=== PATIENT | male | born 1930 | race Caucasian/White ===

== ENCOUNTER 2017-07-02 09:51 | Inpatient (IN) | payer MEDICARE, OTHER ==
[2017-07-02] MEDS ORDERED: Aspirin Low Dose CHEW TAB* 81 MG ONE (10:26)
[2017-07-02] MEDS ORDERED: Nitroglycerin TAB 0.4 MG* 0.4 MG TAB ONE (10:26)
[2017-07-02] MEDS ORDERED: Aspirin Low Dose CHEW TAB* 81 MG PO ONE (10:26)
[2017-07-02] MEDS ORDERED: Nitroglycerin TAB 0.4 MG* 0.4 MG TAB SL ONE (10:27)
[2017-07-02 10:34] LABS: Hematocrit 45 % (42-52); Hemoglobin 15.2 g/dl (14.0-18.0); Mean Corpuscular HGB Conc 34 g/dl (31-36); Mean Corpuscular Hemoglobin 32 pg (27-31); Mean Corpuscular Volume 95 fL (80-94); Mean Platelet Volume 9 um3 (7.4-10.4); Red Cell Distribution Width 13 % (10.5-15); White Blood Count 5.9 10^3/ul (3.5-10.8)
[2017-07-02] MEDS ORDERED: Nitroglycerin 2% OINT* 1 GM PAK TOPICAL ONE (10:40)
[2017-07-02] MEDS ORDERED: Nitroglycerin 2% OINT* 1 GM PAK ONE (10:43)
[2017-07-02 10:45] LABS: Albumin 4.2 g/dL (3.2-5.2); BUN/Creatinine Ratio 14.4 (8-20); Calcium 9.5 mg/dL (8.6-10.3); EGFR African American 80.8 (>60); EGFR Non-African American 62.8 (>60); Globulin 3.3 g/dL (2-4); Magnesium 2.2 mg/dL (1.9-2.7); Potassium 4.4 mmol/L (3.5-5.0); Total Bilirubin 1.8 mg/dL (0.2-1.0); Total Protein 7.5 g/dL (6.4-8.9)
--- NOTE | 2017-07-02 10:51 | RAD ---
HISTORY: Chest pain COMPARISONS: April 14, 2010 VIEWS: 1: frontal portable view of the chest at 10:20 AM FINDINGS: LINES AND TUBES: None. CARDIOMEDIASTINAL SILHOUETTE: The cardiomediastinal silhouette is normal for portable technique. PLEURA: The costophrenic angles are sharp. No pleural abnormalities are noted. LUNG PARENCHYMA: The lungs are clear. ABDOMEN: The upper abdomen is clear. There is no subphrenic gas. BONES AND SOFT TISSUES: No bone or soft tissue abnormalities are noted. IMPRESSION: NO ACTIVE CARDIOPULMONARY DISEASE.
[2017-07-02 10:57] LABS: Troponin I 0.22 ng/mL (<0.04)
[2017-07-02] MEDS ORDERED: NS 0.9% 1000 ML*IV.FLUID IV ONE (11:12)
[2017-07-02] MEDS ORDERED: Heparin DRIP 25,000 UNITS(*) 25,000 UNITS/500 ML BAG IVPB SCH ×2 (11:30→12:15)
--- NOTE | 2017-07-02 11:36 | ED ---
Garth Edwards Angela, scribed for Dru Orellana MD on 07/02/17 at 1019 . HPI Chest Pain - HPI Summary HPI Summary: This pt is a 87 y/o male accompanied by his presenting to [facility] c/o left sided chest pain with radiation to left arm that started today at 0700. Pt rates his pain 4 out of 10 in severity. Pt denies SOB, light-headedness, dizziness, diaphoresis, nausea. He denies tobacco, alcohol, or drug use. PMHx: cardiac stent. Pt's corporate licensed broker is Dr. Hernandez. - History of Current Complaint Chief Complaint: EDChestPainROMI Time Seen by Provider: 07/02/17 10:13 Hx Obtained From: Patient, Family/Seafood Packer - Onset/Duration: Started Hours Ago Timing: Lasting Hours Pain Intensity: 4 Pain Scale Used: 0-10 Numeric Chest Pain Radiates: Yes Chest Pain Radiates To:: Arm - left Associated Signs and Symptoms: Positive: Chest Pain. Negative: Weakness, Dizziness, Shortness of Breath, Lightheadedness, Diaphoresis, Nausea - Allergy/Home Medications Allergies/Adverse Reactions: Allergies Allergy/AdvReac Type Severity Reaction Status Date / Time Morphine Allergy Rash Verified 07/02/17 10:30 Sulfa Antibiotics Allergy Rash Verified 07/02/17 10:30 IV DYE Allergy See Comment Uncoded 07/02/17 10:30 Home Medications: Home Medications Ascorbic Acid TAB* [Vitamin C TAB*] 500 mg PO BID 07/02/17 [History Confirmed 07/02/17] Coenzyme [id number] [Co Q-10 Plus] 1 cap PO BID 07/02/17 [History Confirmed 07/02/17] Cyanocobalamin [Vitamin B-12] 100 mcg PO DAILY 07/02/17 [History Confirmed 07/02] Dabigatran CAP(NF) [Pradaxa CAP(NF)] 150 mg PO BID 07/02/17 [History Confirmed 07/02/17] Glucosamine Sulfate 1,000 mg PO BID 07/02/17 [History Confirmed 07/02/17] Lisinopril TAB* [Prinivil TAB*] 10 mg PO QAM 07/02/17 [History Confirmed ] Misc Natural Products [Prostate] 1 cap PO BID 07/02/17 [History Confirmed ] Saw Bradley (Serenoa Repens) [Saw Bradley] 550 mg PO BID 07/02/17 [History Confirmed 07/02/17] Tamsulosin CAP* [Flomax CAP*] 0.4 mg PO DAILY 07/02/17 [History Confirmed ] Vitamin B Complex CAP* [B Complex CAP*] 1 cap PO DAILY 07/02/17 [History Confirmed 07/02/17] PMH/Surg Hx/FS Hx/Imm Hx Endocrine/Hematology History: Denies: Hx Diabetes, Hx Thyroid Disease Cardiovascular History: Reports: Hx Hypertension, Other Cardiovascular Problems/ Disorders - cardiac stent to LAD Respiratory History: Denies: Hx Asthma, Hx Chronic Obstructive Pulmonary Disease (COPD) GI History: Denies: Hx Ulcer - Surgical History Surgery Procedure, Year, and Place: bilat knee surgery Infectious Disease History: Denies: Hx Hepatitis, Hx Human Immunodeficiency Virus (HIV), Traveled Outside the [place] in Last 30 Days - Family History Known Family History: Negative: Cardiac Disease - Social History Alcohol Use: None Hx Substance Use: No Substance Use Type: Reports: None Hx Tobacco Use: No Smoking Status (MU): Never Smoked Tobacco Review of Systems Negative: Fever, Chills ENT: Negative Positive: Chest Pain - with radiation to left arm Negative: Shortness Of Breath, Cough Negative: Abdominal Pain Genitourinary: Negative Musculoskeletal: Negative Skin: Negative Neurological: Negative All Other Systems Reviewed And Are Negative: Yes Physical Exam Triage Information Reviewed: Yes Vital Signs On Initial Exam: Initial Vitals Temp Pulse Resp BP Pulse Ox 98.2 F 74 16 155/74 97 07/02/17 09:53 07/02/17 09:53 07/02/17 09:53 07/02/17 09:53 07/02/17 09:53 Vital Signs Reviewed: Yes Diagnostics - Vital Signs Vital Signs Temp Pulse Resp BP Pulse Ox 07/02/17 10:01 97.8 F 74 15 140/85 97 07/02/17 09:53 98.2 F 74 16 155/74 97 - Laboratory Result Diagrams: 07/02/17 10:20 07/02/17 10:20 Lab Statement: Any lab studies that have been ordered have been reviewed, and results considered in the medical decision making process. - Radiology Chest XR Xray Interpretation: No Acute Changes - IMPRESSION: No active cardiopulmonary disease. ED physician has reviewed this radiology report and agrees. Radiology Interpretation Completed By: Radiologist - EKG 1013 EKG Rhythm: Atrial Fibrillation EKG Interpretation: ST elevation at II, III, aVF, V6 but no recip changes. 1103 EKG Rhythm: Atrial Fibrillation EKG Interpretation: Minimal ST elevation at inferior leads Chest Pain Course/Dx - Course Course Of Treatment: 87 yr old male with chest pain , radiating down the arm, and EKG with St elevations inferior lat leads, but no recip changes. DW Dr Shoemaker at 1030. He asked me to call Dr Castellano directly. At 1120 I spoke with pharmacy, they took verbal orders for the heparin drip. 11:26 - I discussed with Dr. Brand, hospitalist, who will admit the pt. - Diagnoses Provider Diagnoses: Chest pain - Provider Notifications Discussed Care Of Patient With: Donnie Shoemaker - contacted Dr Shoemaker as I was asked to call Dr Castellano. Dr Castellano contacted Time Discussed With Above Provider: 10:30 - at 1037 am and he wants troponin, and he will see patient. Instructed by Provider To: Other - 11:20 - I spoke with pharmacy, they took verbal order for the heparin drip. 11:26 - I spoke with Dr. Brand, hospitalist , who will admit the pt. Discharge - Discharge Plan Condition: Good Disposition: ADMITTED TO [facility] Referrals: Jose Luis Hamilton MD [Primary Care Provider] - The documentation as recorded by the Garth holley Angela accurately reflects the service I personally performed and the decisions made by me, Dru Orellana MD.
[2017-07-02] MEDS ORDERED: Heparin VIAL(*) 5000 UNITS/ML VIAL (FIVE THOUSAND) IV PRN ×2 (11:37→12:15)
[2017-07-02] MEDS ORDERED: Heparin DRIP 25,000 UNITS(*) 25,000 UNITS/500 ML BAG ONE (11:39)
[2017-07-02] MEDS ORDERED: Heparin VIAL(*) 5000 UNITS/ML VIAL (FIVE THOUSAND) ONE (11:39)
[2017-07-02] MEDS ORDERED: Atorvastatin* 80 MG TAB PO ONE (12:02)
[2017-07-02] MEDS ORDERED: Ondansetron INJ* 2 MG/ML VIAL IV PRN (12:02)
[2017-07-02] MEDS ORDERED: Clopidogrel TAB* 300 MG PO ONE (12:02)
--- NOTE | 2017-07-02 12:09 | ECHO ---
Patient: TRACEY VALDOVINOS [facility] Rec#: [id number] : 1930 Date: 07/02/2017 Age: 87y Height: 173 cm / 68.1 in Weight: 77 kg / 169.7 lbs Sex: M BSA: 1.91 Room#: 19 Admit Date#: 07/02/2017 Type: Inpatient Referring: Keegan Castellano MD Reading: Keegan Castellano MD Statistical Machine Servicer: Liberty Guadarrama [facility] Transthoracic Echocardiogram Indication: CP BP: 121/48 HR: 70 Rhythm: NSR Findings History: To ED with CP. Limited echo to evaluate LV function. Technical Comments: The study quality is good. Completed at 1129. Left Ventricle: There is a focal wall motion abnormality present.There is subtle proximal inferior wall hypokinesis seen. There is normal left ventricular systolic function. The estimated ejection fraction is 55-60%. Mitral Valve: There is mild mitral regurgitation. Conclusions Limited study to assess LV systolic function in patient with abnormal troponin There is subtle proximal inferior wall hypokinesis seen. There is normal left ventricular systolic function. The estimated ejection fraction is 55-60%. There is mild mitral regurgitation.
[2017-07-02] MEDS ORDERED: predniSONE TAB* 10 MG PO ONE (12:10)
[2017-07-02] MEDS ORDERED: nitroGLYCERIN DRIP* 250 ML ONE (12:17)
[2017-07-02] MEDS ORDERED: nitroGLYCERIN DRIP* 25,000 MCG in PREMIX* 0 ML IV SCH (13:00)
[2017-07-02 14:35] LABS: Troponin I 0.17 ng/mL (<0.04)
--- NOTE | 2017-07-02 14:53 | CONS ---
CC: Jose Luis Hamilton MD * CARDIOLOGY CONSULTATION: DATE OF CONSULT: 07/02/17 REASON FOR CONSULT: Patient with chest discomfort, abnormal EKG raising question of possible acute coronary syndrome with known history of coronary artery disease. HISTORY OF PRESENT ILLNESS: The patient is a pleasant 87-year-old gentleman who has noted over the course of the past couple of weeks developing onset of upper left shoulder discomfort with radiation into the chest with an aching sensation when he overdoes it. If he stops what he is doing, it would go away. Today, he got up doing routine things around the house and developed recurrent symptoms. Because it was not going away, he went to the emergency room. In the emergency room, he was given nitroglycerin with significant improvement and eventually by the time I saw him, his chest discomfort was completely gone with minimal shoulder discomfort. His initial EKG had a question of mild J-point elevation in the inferior leads. There was no dramatic reciprocal changes, but very subtle ST segment depression in aVL. A repeat EKG showed some improvement of these findings. The patient is on Pradaxa for chronic atrial fibrillation and took his last dose this morning before coming to the emergency room. The patient's cardiac history dates back to 2009 when he presented to [facility] with an acute coronary syndrome and was transferred to [facility]. His cardiac catheterization had revealed an EF of 55% with preserved LV function with no focal wall motion abnormalities. His left main was okay. His left anterior descending artery had a severe 95% stenosis at the mid portion of the artery and the circumflex had a mild obstructive proximal disease. The right coronary artery was a small caliber nondominant vessel. He subsequently underwent stenting down in [facility] utilizing a 3.0 x 24 mm long [place] stent postdilated to 3.5 mm to 3.6 mm. Since that time to now, he has undergone a nuclear stress test most recently on 11/03/14 by his customer retention representative in [place] as a regadenoson study that showed no evidence of ischemia with an EF at rest of 58%, stress 78%. An echocardiogram done by the [facility] revealed an EF of 55% to 60% with no focal wall motion abnormalities seen. The left atrium was moderately dilated. The right atrium was moderately dilated. There was bnad-mq-djuiaula tricuspid regurgitation more consistent with perhaps mild. In the emergency room, his troponin was found to be 0.22 with total CPK 69, MB of 3.5, lactic acid was 3.0. PAST MEDICAL HISTORY: Also includes a history of benign prostatic hypertrophy as well as the coronary artery disease history. He has a history of atrial fibrillation which became permanent in nature and for which he is on Pradaxa. He reportedly has a CHADS-VASc score of at least 2. With regard to his history of coronary artery disease, it should be noted that he was taken off the statin therapy by his customer retention representative down in [place] and he was not on a beta-barbra because his heart rate was already controlled in atrial fibrillation and concerns were made over precipitating bradyarrhythmias. The patient apparently does have orthostatic hypotension, but of note, is on Cardura for his prostatic hypertrophy. His last visit on 08/15/[address] Hernandez, the patient was not found to be postural on standing. His cardiac risk factors include a negative history of smoking. He has a history of hypertension and reported hyperlipidemia in the past. He denies any history of diabetes. FAMILY HISTORY: He has no family history of definitive early coronary artery disease. REVIEW OF SYSTEMS: As per the H and P, but important concerns with regard to intervention. The patient has no history of renal insufficiency that he is aware of. He does have a CONTRAST allergy in the past with breathing issues. He denies any hematochezia, hematemesis, or hematuria. He has had no stroke or TIA. PHYSICAL EXAM: When I see him in the emergency room, reveals Vital Signs: Blood pressure 145/85, pulse 70s, afebrile, O2 saturation on 2 L 97%. Neck is supple without increased JVP. Mouth reveals moist mucosa. Eyes reveal conjunctivae pink, sclerae clear. Lungs have no active rales, rhonchi, or wheezes. Heart reveals no visible heaves, no palpable heaves or thrills and irregularly irregular rhythm is noted. There is no significant systolic or diastolic murmur. Abdomen is soft, nontender. Extremities are without edema. The femoral pulses are present without bruits. Neuro: The patient is alert, oriented with normal mentation. Musculoskeletal: The patient moves all extremities appropriately. Psychological: The patient with normal affect. DIAGNOSTIC STUDIES/LAB DATA: Laboratory results revealed sodium 134, potassium 4.4, chloride 99, bicarb 29, BUN and creatinine of 16 and 1.1. White count is 5900, hemoglobin and hematocrit is 15.2 and 45, platelet count of 198,000. INR 1.1. Lactic acid 3.0. Total bili 1.8. SGOT 22. Total CPK 69, MB 3.5. Troponin 0.22. EKG #1 from the emergency room reveals atrial fibrillation with controlled rate with subtle J-point elevation with concave upward ST segments in the inferior and some of the precordial leads. There is minimal slight ST depression in aVL. Repeat EKG shows a slightly less presence of the J-point elevation seen. OVERALL ASSESSMENT: Jasmyn presents with clearly an acute coronary syndrome, non -ST elevation myocardial infarction, currently feeling much better with EKG changes that have seem to improved to some degree. They do not meet definitive criteria for ST elevation myocardial infarction. At this point in time, with these symptoms virtually gone, we will plan for heparinization, add clopidogrel with a loading dose of 600 mg in preparation in case we need to emergently run to the cardiovascular laboratory, ideally knowing that he just took his Pradaxa , I would like to try to wait at least 24 or perhaps even 48 hours if possible, but I am not necessarily convinced we will have that opportunity. We will put him on a heparin drip, as well as IV nitroglycern, at this point and admit him to the intensive care unit and cycle enzymes carefully. We will watch him for any return of significant symptoms or profound ekg changes that would necessitate more urgently proceeding to the cardiovascular laboratory. Thank you very much for asking us to see him. We will follow him with you. [id number]/[facility] #: [id number] LIZETT
[2017-07-02] MEDS: Heparin DRIP 25,000 UNITS(*) 25,000 UNITS/500 ML BAG IVPB SCH (14:57)
--- NOTE | 2017-07-02 15:17 | HP ---
CC: Dr. Hamilton; Dr. Castellano * HISTORY AND PHYSICAL: DATE OF ADMISSION: 07/02/17 PRIMARY CARE PROVIDER: Dr. Hamilton. ATTENDING PHYSICIAN WHILE IN THE HOSPITAL: Aleida Brand DO * (report dictated by Zion Urbano NP) CONSULTING FITTER TACKER: Dr. Castellano. CHIEF COMPLAINT: 1. Chest discomfort. 2. Left shoulder discomfort. HISTORY OF PRESENT ILLNESS: Mr. Zayas is an 87-year-old male patient who has a history of paroxysmal AFib, hypertension, hyperlipidemia, GERD, BPH, history of UTIs, history of RI, CAD, last stent was to the LAD in 2009. He came in today stating he woke up this morning having chest discomfort again and he states that he had chest discomfort intermittently with exertion in the chest to the left shoulder associated with nausea off and on in the last couple of days increasing in duration and intensity. He said when stopped what he was doing, the discomfort went away and he was feeling fine. Unfortunately though when he woke this morning, he was having discomfort. He called his primary and his primary suggested that he should be evaluated in the ED. He denies any pain now. He states he has not had any recent fevers, chills, URI-type symptoms , or recent trips or travel. He denies feeling short of breath. He came in to the ED. There was a concern. It was noted that his troponin was 0.22. He denied having any abdominal complaints but because of the chest discomfort that did go down to the arm, jaw, pressure associated with nausea, and exertional we were asked to evaluate for admission for acute coronary syndrome and it was also noted that he did have EKG changes as well. He had some ST elevations on the EKG in the inferior leads, which was new compared to his previous EKGs. He did appear to be in AFib. PAST MEDICAL HISTORY: Significant for: 1. AFib. 2. Hypertension. 3. Hyperlipidemia. 4. GERD. 5. BPH. 6. History of chronic UTIs. 7. Schatzki's ring. 8. RI. 9. CAD. PAST SURGICAL HISTORY: 1. 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 2. He has a history of cardiac catheterization with 1 drug-eluting stent to the LAD. 3. 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 MEDICATIONS: The home meds according to the list that was provided by the patient include: 1. Vitamin B 1 capsule daily. 2. Flomax 0.4 mg daily. 3. Saw palmetto 550 mg p.o. b.i.d. 4. Crestor 5 mg p.o. every 48 hours. 5. Miscellaneous natural products1 capsule p.o. b.i.d. 6. Lisinopril 10 mg daily. 7. Glucosamine chondroitin 1000 mg p.o. b.i.d. 8. Pradaxa 150 mg p.o. b.i.d. 9. Vitamin B12 100 mcg p.o. daily. 10. Coenzyme Q10 one capsule p.o. b.i.d. 11. Vitamin C 500 mg p.o. b.i.d. ALLERGIES TO MEDICATIONS: Include MORPHINE, SULFA DRUGS, and IV DYE. FAMILY HISTORY: His mother when he is at the age of 6. He did not really know her. His father had a history of leukemia. SOCIAL HISTORY: He does not smoke, does not drink. Surrogate decision maker is his . REVIEW OF SYSTEMS: There is no documented fever. He denied having any significant weight change. There was no double vision. There is no ear discharge. He denied having any rhinorrhea. No sore throat. No thyroid enlargement. There is no chest pain now. He did have it, from HPI. He denies having any abdominal discomfort. There was nausea, but none now. No dysuria. No frequency. No seizure. No loss of consciousness, no pruritus, and no skin ulcerations. Review of 14 systems completed, all others negative. PHYSICAL EXAMINATION GENERAL: At this time, Mr. Zayas is an 87-year-old male patient. He appears to be well nourished, well developed. He does not appear to be in any acute distress. He is sitting in the ER stretcher. VITAL SIGNS: Blood pressure 132/71, pulse of 64, respirations were 18, O2 sat 96%, temperature 97.8. HEENT: Head: Atraumatic and normocephalic. Eyes: EOMs are intact. Sclerae are anicteric and not pale. Throat: Oral mucosa appeared to be moist. No oropharyngeal erythema. NECK: Supple. LUNGS: Clear to auscultation bilaterally. No wheezes, rales, or rhonchi. HEART: Sounds S1, S2. Regular rate and rhythm. No murmurs, rubs, or gallops were appreciated. ABDOMEN: Soft. It was flat, nontender. Bowel sounds present. EXTREMITIES: Pulses were 2+ throughout. He is able to move all 4 extremities with 5/5 strength. NEUROLOGIC: The patient is awake. He is alert. He is oriented x3. His sample distributor were equal. He had no gross focal deficits. SKIN: Grossly intact. LABORATORY DATA/DIAGNOSTIC STUDIES: The labs today revealed a WBC of 5.9, RBC of 4.7, hemoglobin of 15.3, hematocrit of 45, platelet count of 198. INR was 1.10. PTT was pending. The sodium was 134, potassium was 4.4, chloride of 99, bicarb 29, BUN 16, creatinine 1.10, glucose 190. The lactic was 3.0. Calcium 9.5, mag 2.2. Total bili 1.8, AST 22, ALT 13, alk phos 72. CK 69. CK-MB 0.5. Troponin 0.22. His albumin was 4.2. He did have an EKG obtained today. The most recent from 08/24/16 reveals atrial fibrillation. He does have some minimal ST elevations in 2, 3, and aVF. As we looked at the first EKG when he came in, his elevation is slightly improved, to almost the same. He did have a chest x-ray obtained today that showed no active cardiopulmonary disease. There are reports from Dr. Hernandez's office in the chart. He does have an echo from 2 years ago. EF was preserved at 55 to 60% and again cath from 2009, again required stent in to the LAD. Old medical records were reviewed. ASSESSMENT AND PLAN: Mr. Zayas is an 87-year-old male patient coming in to the ED today with complaints of chest discomfort with a concerning story for acute coronary syndrome and now found to be having what appears to be calling it an NSTEMI. He was evaluated by Dr. Castellano. At this point, the hospitalist service was asked to evaluate for admission. He will be admitted under inpatient status for: 1. Acute coronary syndrome, non-ST elevation myocardial infarction. Again, he does have subtle ST elevations and it is now new. He is chest pain-free now. The EKG looked mildly improved from the second one. In addition, the patient was on Pradaxa. So, it would be beneficial to the patient if we could wait until tomorrow to let the Pradaxa wear off. So, we are going to keep him in the ICU on nitro drip, holding beta-blockers, heart rate hovering right around 50. We will go ahead and put him on heparin per protocol, load him with Plavix. He is allergic to IV dye. So, I am going to give him 50 prednisone now and again 7 hours before cath and again at [address] Castellano did state that he was planning for catheter around 9:30 tomorrow. So, we will give him the medications based on that time. We will go ahead and give him Benadryl an hour before as well. We will monitor him closely and I am putting him on high intensity statins for the time being. This is going to always be titrated back after the acute episode and we will follow him closely. An echo has been ordered. We will cycle the troponins, CK, and CK-MB. Also, he will be on aspirin. 2. Atrial fibrillation. He is rate controlled. We will continue meds as prescribed with the exception of Pradaxa. He was given heparin drip. 3. Hypertension. He will be on nitro and lisinopril. 4. Hyperlipidemia. He will be on statin therapy. 5. Gastroesophageal reflux disease. I did order a PPI. 6. History of benign prostatic hypertrophy. Continue Flomax. 7. History of coronary artery disease. Again, we are treating him aggressively for acute coronary syndrome. 8. Deep vein thrombosis. He will be placed on heparin drip. 9. Code status. Full code. 10. Fluids, electrolytes, and nutrition. He is n.p.o. in case we need to take him emergently to the cath. TIME SPENT: Time spent on admission was 60 minutes, greater than half the time was spent [id number] with the patient obtaining my history and physical, the other half time was spent going over the plan of care with the patient and implementing the plan of care. I discussed plan of care with my attending, Dr. Brand, she is in agreement with the plan. ZION URBANO SOY [id number]/[facility] #: [id number] LIZETT
[2017-07-02 17:06] LABS: Troponin I 0.23 ng/mL (<0.04)
[2017-07-02 19:10] LABS: Troponin I 0.32 ng/mL (<0.04)
[2017-07-03] MEDS: Acetaminophen TAB* 325 MG PO PRN ×2 (00:19→20:13)
[2017-07-03] MEDS ORDERED: predniSONE TAB* 20 MG PO ONE (02:30)
[2017-07-03 05:32] LABS: Hematocrit 40 % (42-52); Hemoglobin 13.3 g/dl (14.0-18.0); Mean Corpuscular HGB Conc 34 g/dl (31-36); Mean Corpuscular Hemoglobin 32 pg (27-31); Mean Corpuscular Volume 95 fL (80-94); Mean Platelet Volume 9 um3 (7.4-10.4); Red Blood Count 4.19 10^6/ul (4.0-5.4); Red Cell Distribution Width 13 % (10.5-15); White Blood Count 12.7 10^3/ul (3.5-10.8)
[2017-07-03 05:49] LABS: BUN/Creatinine Ratio 18.9 (8-20); Calcium 8.7 mg/dL (8.6-10.3); EGFR African American 96.7 (>60); EGFR Non-African American 75.2 (>60); HDL Cholesterol 51.4 mg/dL; Potassium 4.1 mmol/L (3.5-5.0)
[2017-07-03 06:01] LABS: Troponin I 2.21 ng/mL (<0.04)
[2017-07-03] MEDS: CMC: Pantoprazole TAB (NF) 40 MG TAB PO SCH (06:36)
[2017-07-03] MEDS ORDERED: predniSONE TAB* 10 MG PO ONE (08:30)
[2017-07-03] MEDS ORDERED: diPHENhydraMINE PO* 50 MG PO ONE (08:30)
[2017-07-03] MEDS: Tamsulosin CAP* 0.4 MG PO SCH (09:00)
[2017-07-03] MEDS ORDERED: Influenza VAC *QUAD* 2017-18* 0.5 ML SYRINGE IM ONE (09:00)
[2017-07-03] MEDS: Lisinopril TAB* 10 MG PO SCH (09:00)
[2017-07-03] MEDS: Aspirin Low Dose CHEW TAB* 81 MG PO SCH (09:00)
[2017-07-03] MEDS: Clopidogrel TAB* 75 MG PO SCH (09:00)
--- NOTE | 2017-07-03 09:53 | PN ---
Subjective Date of Service: 07/03/17 Interval History: Patient seen this morning. Reports no recurrence of chest pain since ED yesterday. No SOB. Feels well, understands plan for cath in AM. Family History: Unchanged from Admission Social History: Unchanged from Admission Past Medical History: Unchanged from Admission Objective Active Medications: Acetaminophen (Tylenol Tab*) 650 mg PO Q4H PRN Aspirin (Aspirin Low Dose Tab*) 81 mg PO DAILY BETTY Atorvastatin Calcium (Lipitor*) 80 mg PO 1700 BETTY Clopidogrel Bisulfate (Plavix Tab*) 75 mg PO DAILY BETTY Heparin Sodium (Porcine) (Heparin Vial(*)) 0 - 4,000 units IV .PER HEPARIN DRIP PRN Nitroglycerin/Dextrose 25,000 (mcg/ IV Solution) 250 mls @ 1.2 mls/hr IV .( Initial Rate) BETTY; 2 MCG/MIN Heparin Sodium/Dextrose (Heparin Drip 25,000 Units(*)) 25,000 units in 500 mls @ 0 mls/hr IVPB .PER PROTOCOL BETTY; As Directed Sodium Chloride (Ns 0.9% 1000 Ml*) 1,000 mls @ 125 mls/hr IV .per rate BETTY Lisinopril (Prinivil Tab*) 10 mg PO QAM BETTY Ondansetron HCl (Zofran Inj*) 4 mg IV Q6H PRN Pantoprazole Sodium (Protonix Tab (Nf)) 40 mg PO DAILY@0600 [facility] Prednisone (Deltasone Tab*) 50 mg PO ONCE ONE Prednisone (Deltasone Tab*) 50 mg PO ONCE ONE Tamsulosin HCl (Flomax Cap*) 0.4 mg PO DAILY [facility] Vital Signs 07/02/17 07/02/17 07/02/17 12:00 12:15 12:30 Temperature Pulse Rate 61 53 61 Respiratory 14 17 22 Rate Blood Pressure 104/86 119/75 135/97 (mmHg) O2 Sat by Pulse 98 97 96 Oximetry 07/02/17 07/02/17 07/02/17 12:35 12:40 12:45 Temperature Pulse Rate Respiratory 19 17 13 Rate Blood Pressure 147/128 127/75 127/74 (mmHg) O2 Sat by Pulse Oximetry 07/02/17 07/02/17 07/02/17 12:50 13:00 13:11 Temperature 98.1 F Pulse Rate 46 Respiratory 19 21 Rate Blood Pressure 130/79 (mmHg) O2 Sat by Pulse 97 Oximetry 07/02/17 07/02/17 07/02/17 13:14 13:15 13:21 Temperature 98.1 F Pulse Rate 47 50 47 Respiratory 24 22 17 Rate Blood Pressure 118/70 116/72 117/69 (mmHg) O2 Sat by Pulse 99 96 97 Oximetry 07/02/17 07/02/17 07/02/17 13:23 13:24 13:25 Temperature Pulse Rate 50 46 Respiratory 18 17 18 Rate Blood Pressure 105/64 (mmHg) O2 Sat by Pulse 97 97 Oximetry 07/02/17 07/02/17 07/02/17 13:30 13:35 13:40 Temperature Pulse Rate 46 48 Respiratory 21 19 17 Rate Blood Pressure 109/68 116/66 117/71 (mmHg) O2 Sat by Pulse 99 97 Oximetry 07/02/17 07/02/17 07/02/17 13:45 13:50 13:55 Temperature Pulse Rate 50 49 63 Respiratory 18 18 18 Rate Blood Pressure 116/75 114/67 121/67 (mmHg) O2 Sat by Pulse 97 98 98 Oximetry 07/02/17 07/02/17 07/02/17 14:00 14:05 14:09 Temperature 98.3 F Pulse Rate 48 46 50 Respiratory 17 15 19 Rate Blood Pressure 104/66 121/62 (mmHg) O2 Sat by Pulse 98 99 98 Oximetry 07/02/17 07/02/17 07/02/17 14:10 14:30 15:00 Temperature 97.8 F Pulse Rate 52 48 51 Respiratory 16 15 24 Rate Blood Pressure 123/66 119/67 134/82 (mmHg) O2 Sat by Pulse 96 98 98 Oximetry 07/02/17 07/02/17 07/02/17 15:04 15:19 15:31 Temperature Pulse Rate 58 49 48 Respiratory 24 19 20 Rate Blood Pressure 116/60 (mmHg) O2 Sat by Pulse 95 95 93 Oximetry 07/02/17 07/02/17 07/02/17 16:00 16:25 16:30 Temperature 98.2 F Pulse Rate 55 67 66 Respiratory 20 15 20 Rate Blood Pressure 119/64 120/72 (mmHg) O2 Sat by Pulse 95 97 92 Oximetry 07/02/17 07/02/17 07/02/17 17:00 17:30 17:33 Temperature 98.3 F Pulse Rate 65 55 79 Respiratory 27 20 27 Rate Blood Pressure 118/81 122/68 (mmHg) O2 Sat by Pulse 97 97 97 Oximetry 07/02/17 07/02/17 07/02/17 17:47 17:55 18:00 Temperature 98.0 F Pulse Rate 74 84 74 Respiratory 29 21 22 Rate Blood Pressure 118/67 (mmHg) O2 Sat by Pulse 96 93 95 Oximetry 07/02/17 07/02/17 07/02/17 18:05 18:31 18:42 Temperature Pulse Rate 78 70 76 Respiratory 25 20 21 Rate Blood Pressure 123/78 (mmHg) O2 Sat by Pulse 94 98 95 Oximetry 07/02/17 07/02/17 07/02/17 19:00 19:30 19:46 Temperature 99.1 F Pulse Rate 65 76 Respiratory 18 20 Rate Blood Pressure 115/66 121/63 (mmHg) O2 Sat by Pulse 94 96 Oximetry 07/03/17 07/03/17 07/03/17 08:31 09:00 09:30 Temperature Pulse Rate 59 61 56 Respiratory 21 18 16 Rate Blood Pressure 123/69 113/65 104/62 (mmHg) O2 Sat by Pulse 97 95 98 Oximetry Oxygen Devices in Use Now: Nasal Cannula - 2L Appearance: Elderly, M, laying in bed in NAD Eyes: No Scleral Icterus Ears/Nose/Mouth/Throat: Mucous Membranes Moist Neck: NL Appearance and Movements; NL JVP Respiratory: Symmetrical Chest Expansion and Respiratory Effort, Clear to Auscultation Cardiovascular: NL Sounds; No Murmurs; No JVD, - - Bradycardia Abdominal: NL Sounds; No Tenderness; No Distention Lymphatic: No Cervical Adenopathy Extremities: No Edema Skin: No Rash or Ulcers Neurological: Alert and Oriented x 3 Result Diagrams: 07/03/17 05:15 07/03/17 05:15 Microbiology and Other Data: Microbiology 07/02/17 13:31 Nasal Screen MRSA (PCR)(LEMUEL) - Final Nasal Mrsa Negative Assess/Plan/Problems-Billing Assessment: NSTEMI in an 87 yo M with hx of HTN, HLD, Afib on pradaxa, CAD, GERD, BPH - Patient Problems (1) NSTEMI (non-ST elevated myocardial infarction) Current Visit: Yes Comment: Appreciate Cardiology assistance, plan is to allow Pradaxa to wash out with cath planned for 07/04. Continue nitro gtt, heparin gtt, ASA, plavix, statin. Beta-barbra held for bradycardia. Formal echo done this morning, pending read. Troponins bumped overnight but EKG stable. Recheck at 1200. Prednisone ordered by Dr. Castellano for contrast allergy. (2) Atrial fibrillation Current Visit: Yes Comment: Rate controlled. Holding Pradaxa, on heparin gtt. (3) HTN (hypertension) Current Visit: Yes Comment: Continue Lisinopril, on nitro gtt (4) GERD (gastroesophageal reflux disease) Current Visit: Yes Comment: Continue PPI (5) BPH (benign prostatic hyperplasia) Current Visit: Yes Comment: Flomax (6) DVT prophylaxis Current Visit: Yes Comment: heparin gtt Status and Disposition: Inpatient for ACS/NSTEMI
[2017-07-03 13:33] LABS: Troponin I 2.49 ng/mL (<0.04)
--- NOTE | 2017-07-03 16:32 | ECHO ---
Patient: TRACEY VALDOVINOS [facility] Rec#: [id number] : 1930 Date: 07/03/2017 Age: 87y Height: 173.99 cm / 68.5 in Weight: 76.66 kg / 169.0 lbs Sex: M BSA: 1.91 Room#: [facility] Admit Date#: 07/02/2017 Type: Inpatient Referring: Keegan Castellano MD Reading: Keegan Castellano MD Electrician Office: Sienna Pickering RDCS CC: Jose Luis Hamilton MD Transthoracic Echocardiogram Indication: NSTEMI BP: 111/69 HR: 65 Rhythm: A-Fib Findings History: A-fib, HTN, HLD, GERD, BPH, CAD with PCI to LAD. Technical Comments: The study quality is fair. The study is technically limited due to poor acoustic windows. Completed at 1020. Left Ventricle: The left ventricular chamber size is normal. There is no left ventricular hypertrophy. There is a focal wall motion abnormality present.There is an area of hypokinesis to the low posterolateral wall. Left ventricular systolic function is at the lower limits of normal. The estimated ejection fraction is 50-55%. The assessment of diastolic function is non-diagnostic. Left Atrium: The left atrium is moderate to severely dilated. Right Ventricle: The right ventricle is moderately dilated. The right ventricular global systolic function is mildly reduced. Right Atrium: The right atrium is moderate to severely dilated. Aortic Valve: The aortic valve is trileaflet. Mild aortic leaflet calcification is visualized. Systolic excursion of the aortic valve cusps is reduced. There is a trace of aortic regurgitation. There is no evidence of aortic stenosis. Mitral Valve: There is mitral annular calcification. The mitral valve leaflets are moderately thickened. There is trace to mild mitral regurgitation. There is no evidence of mitral stenosis. Tricuspid Valve: The tricuspid valve leaflets are mildly thickened. There is mild tricuspid regurgitation. The right ventricular systolic pressure is estimated at 38 mmHg. There is evidence of mild pulmonary hypertension. There is no tricuspid stenosis. Pulmonic Valve: The pulmonic valve appears normal. There is a trace pulmonic regurgitation. There is no pulmonic stenosis. Pericardium: There is no significant pericardial effusion. A pericardial fat pad is visualized. Aorta: There is no dilatation of the ascending aorta. There is no dilatation of the aortic arch. The aortic root is normal in size. Pulmonary Artery: The main pulmonary artery is not well visualized. Venous: The inferior vena cava is dilated. There is a greater than 50% respiratory change in the inferior vena cava dimension. Conclusions Left ventricular systolic function is at the lower limits of normal. There is an area of hypokinesis to the low posterolateral wall. The estimated ejection fraction is 50-55%. The left atrium is moderate to severely dilated. The right atrium is moderate to severely dilated. There is a trace of aortic regurgitation. There is trace to mild mitral regurgitation. There is mild tricuspid regurgitation. There is evidence of mild pulmonary hypertension. There is a trace pulmonic regurgitation. Compared to report of limited study from 07/02/2017 the LV function is better assessed at low normal with a small area of wall motion abnormality as described above. Measurements Name Value Normal Range RVIDd (AP) 2D 3.2 cm (0.9 - 2.6) RVDdMajor (2D) 5.5 cm (2.2 - 4.4) RAd ISD 4CH 6.1 cm (3.4 - 4.9) RA (A4C)W 4.8 cm (2.9 - 4.6) IVSd (2D) 0.9 cm (0.6 - 1) LVPWd (2D) 0.9 cm (0.6 - 1) LVIDd (2D) 4 cm (3.6 - 5.4) LVIDs (2D) 2.7 cm - LV FS (2D) 32 % (25 - 45) Aortic Annulus 2 cm (1.4 - 2.6) Ao root diameter (2D) 3.3 cm (2.1 - 3.5) Ascending Ao 3.1 cm (2.1 - 3.4) Aortic arch 2.3 cm (1.8 - 3.4) LA dimension (AP) 2D 4.1 cm (2.3 - 3.8) LAd ISD 4CH 6.5 cm (2.9 - 5.3) LA ISD 4CH W 5.2 cm (2.5 - 4.5) Name Value Normal Range LA ESV SP 4CH (A/L) 105 ml - LA ESV SP 2CH (A/L) 93 ml - LA ESV BP (A/L) 100 ml - LA ESV BP (A/L) index 52.38 ml/m2 - LA ESV SP 4CH (MOD) 101 ml - LA ESV SP 2CH (MOD) 89 ml - Name Value Normal Range MV E-wave Vmax 0.87 m/sec - MV deceleration time 244.62 msec - LV septal e' Vmax 0.04 m/sec - LV lateral e' Vmax 0.04 m/sec - LV E:e' septal ratio 21.75 ratio - LV E:e' lateral ratio 21.75 ratio - Name Value Normal Range AV Vmax 1.29 m/sec - AV VTI 23.68 cm - AV peak gradient 6.71 mmHg - AV mean gradient 3.34 mmHg - LVOT Vmax 0.86 m/sec - LVOT VTI 17.13 cm - LVOT peak gradient 2.99 mmHg - LVOT mean gradient 1.28 mmHg - Name Value Normal Range TR Vmax 2.4 m/sec - TR peak gradient 23 mmHg - RAP 15 mmHg - RVSP 38 mmHg - IVC diameter 2.1 cm - Name Value Normal Range PV Vmax 0.64 m/sec - PV peak gradient 1.63 mmHg -
[2017-07-03] MEDS: Atorvastatin* 80 MG TAB PO SCH (19:31)
[2017-07-03] MEDS: Heparin DRIP 25,000 UNITS(*) 25,000 UNITS/500 ML BAG IVPB SCH (19:58)
[2017-07-03] MEDS ORDERED: predniSONE TAB* 50 MG PO ONE (21:00)
[2017-07-04] MEDS ORDERED: NS 0.9% 1000 ML* 1,000 ML IV SCH (05:00)
[2017-07-04] MEDS: CMC: Pantoprazole TAB (NF) 40 MG TAB PO SCH (05:32)
[2017-07-04 05:58] LABS: Hematocrit 39 % (42-52); Hemoglobin 13.5 g/dl (14.0-18.0); Mean Corpuscular HGB Conc 35 g/dl (31-36); Mean Corpuscular Hemoglobin 33 pg (27-31); Mean Corpuscular Volume 94 fL (80-94); Mean Platelet Volume 9 um3 (7.4-10.4); Red Blood Count 4.15 10^6/ul (4.0-5.4); Red Cell Distribution Width 13 % (10.5-15); White Blood Count 9.1 10^3/ul (3.5-10.8)
[2017-07-04 06:08] LABS: BUN/Creatinine Ratio 22.3 (8-20); Calcium 8.9 mg/dL (8.6-10.3); EGFR African American 97.9 (>60); EGFR Non-African American 76.1 (>60); Potassium 4.4 mmol/L (3.5-5.0)
[2017-07-04] MEDS ORDERED: predniSONE TAB* 50 MG PO ONE (07:30)
[2017-07-04] MEDS: Aspirin Low Dose CHEW TAB* 81 MG PO SCH (08:03)
[2017-07-04] MEDS: Clopidogrel TAB* 75 MG PO SCH (08:03)
[2017-07-04] MEDS ORDERED: diPHENhydraMINE PO* 25 MG PO ONE (08:30)
[2017-07-04] MEDS ORDERED: VERAPAMIL 2.5 MG/ML 4 ML VIAL ONE (08:41)
[2017-07-04] MEDS ORDERED: Midazolam* 1 MG/ML 5 ML VIAL (5 MG) ONE (08:41)
[2017-07-04] MEDS ORDERED: fentaNYL* 50 MCG/ML 2 ML VIAL (100 MCG VIAL) ONE (08:41)
[2017-07-04] MEDS ORDERED: Heparin(*) 1000 UNIT/ML 10 ML VIAL CATH LAB IV ONE (08:41)
[2017-07-04] MEDS ORDERED: Heparin 2 UNITS/ML IVPREMIX* 3,000 ML IV ONE (08:42)
[2017-07-04] MEDS ORDERED: Lidocaine 1% INJ* 10 MG/ML 30 ML SDV ONE (08:42)
[2017-07-04] MEDS ORDERED: nitroGLYCERIN DRIP* 250 ML ONE (08:42)
[2017-07-04] MEDS ORDERED: Iodixanol* (CONTRAST) 320 MG/ML 100 ML SDV ONE ×4 (08:42→10:18)
[2017-07-04] MEDS ORDERED: Nitroglycerin TAB 0.4 MG* 0.4 MG TAB SL PRN (11:10)
[2017-07-04] MEDS ORDERED: fentaNYL* 50 MCG/ML 2 ML VIAL (100 MCG VIAL) IV PRN (11:13)
[2017-07-04] MEDS ORDERED: Docusate CAP* 100 MG PO PRN (11:13)
[2017-07-04] MEDS: Acetaminophen TAB* 325 MG PO PRN ×2 (13:14→18:19)
[2017-07-04] MEDS: NS 0.9% 1000 ML* 1,000 ML IV SCH ×2 (13:20→23:24)
[2017-07-04] MEDS: Lisinopril TAB* 10 MG PO SCH (13:25)
--- NOTE | 2017-07-04 16:08 | PN ---
Subjective Date of Service: 07/04/17 Interval History: Patient seen after catheterization. No complaints other than some back pain. Sheath still in place. Family History: Unchanged from Admission Social History: Unchanged from Admission Past Medical History: Unchanged from Admission Objective Active Medications: Acetaminophen (Tylenol Tab*) 650 mg PO Q4H PRN Aspirin (Aspirin Low Dose Tab*) 81 mg PO DAILY BETTY Atorvastatin Calcium (Lipitor*) 80 mg PO 1700 BETTY Clopidogrel Bisulfate (Plavix Tab*) 75 mg PO DAILY BETTY Docusate Sodium (Colace Cap*) 100 mg PO DAILY PRN Fentanyl Citrate (Fentanyl*) 25 mcg IV Q2H PRN Nitroglycerin/Dextrose 25,000 (mcg/ IV Solution) 250 mls @ 1.2 mls/hr IV .( Initial Rate) BETTY; 2 MCG/MIN Sodium Chloride (Ns 0.9% 1000 Ml*) 1,000 mls @ 100 mls/hr IV .per rate BETTY Lisinopril (Prinivil Tab*) 10 mg PO QAM BETTY Nitroglycerin (Nitroglycerin Tab 0.4 Mg*) 0.4 mg SL Q5M PRN Ondansetron HCl (Zofran Inj*) 4 mg IV Q6H PRN Pantoprazole Sodium (Protonix Tab (Nf)) 40 mg PO DAILY@0600 BETTY Tamsulosin HCl (Flomax Cap*) 0.4 mg PO DAILY BETTY Zolpidem Tartrate (Ambien Tab*) 5 mg PO BEDTIME PRN Vital Signs 07/03/17 07/03/17 07/03/17 16:30 17:00 17:30 Temperature Pulse Rate 59 67 63 Respiratory 20 21 24 Rate Blood Pressure 118/60 95/60 102/66 (mmHg) O2 Sat by Pulse 97 95 96 Oximetry 07/03/17 07/03/17 07/03/17 22:30 23:00 23:04 Temperature Pulse Rate 60 68 68 Respiratory 19 18 17 Rate Blood Pressure 122/68 119/66 (mmHg) O2 Sat by Pulse 99 97 97 Oximetry 07/04/17 07/04/17 07/04/17 11:45 12:00 12:15 Temperature Pulse Rate 62 70 62 Respiratory 16 23 14 Rate Blood Pressure 148/82 156/84 154/93 (mmHg) O2 Sat by Pulse 98 97 97 Oximetry 07/04/17 14:00 Temperature Pulse Rate 67 Respiratory 15 Rate Blood Pressure 147/82 (mmHg) O2 Sat by Pulse 96 Oximetry Oxygen Devices in Use Now: Nasal Cannula - 2L Appearance: Elderly, M, laying in bed in NAD Eyes: No Scleral Icterus Ears/Nose/Mouth/Throat: - - Dry MM Neck: NL Appearance and Movements; NL JVP Respiratory: Symmetrical Chest Expansion and Respiratory Effort, Clear to Auscultation Cardiovascular: NL Sounds; No Murmurs; No JVD, RRR Abdominal: NL Sounds; No Tenderness; No Distention Lymphatic: No Cervical Adenopathy Extremities: - - R groin sheath in place Neurological: Alert and Oriented x 3 Result Diagrams: 07/04/17 05:30 07/04/17 05:30 Microbiology and Other Data: Microbiology 07/02/17 13:31 Nasal Screen MRSA (PCR)(LEMUEL) - Final Nasal Mrsa Negative Assess/Plan/Problems-Billing Assessment: NSTEMI in an 87 yo M with hx of HTN, HLD, Afib on pradaxa, CAD, GERD, BPH - Patient Problems (1) NSTEMI (non-ST elevated myocardial infarction) Current Visit: Yes Comment: Appreciate Cardiology assistance, s/p cath and LESLI to mid-LAD by Dr. Castellano on 07/04. Continue ASA, plavix, statin. Beta- barbra held initially for bradycardia although HR improved after cath, maybe can add on tomorrow. (2) Atrial fibrillation Current Visit: Yes Comment: Rate controlled. Holding Pradaxa for now, will discuss with Cardiology when to restart. (3) HTN (hypertension) Current Visit: Yes Comment: Continue Lisinopril (4) GERD (gastroesophageal reflux disease) Current Visit: Yes Comment: Continue PPI (5) BPH (benign prostatic hyperplasia) Current Visit: Yes Comment: Flomax (6) DVT prophylaxis Current Visit: Yes Comment: HSQ Status and Disposition: Inpatient for ACS/NSTEMI
[2017-07-04] MEDS ORDERED: Atropine SYRINGE* 0.1 MG/ML 10 ML SYRINGE (1 MG) ONE (16:11)
[2017-07-04] MEDS: Tamsulosin CAP* 0.4 MG PO SCH (18:15)
[2017-07-04] MEDS: Atorvastatin* 80 MG TAB PO SCH (18:19)
[2017-07-04 18:26] LABS: Hematocrit 41 % (42-52); Hemoglobin 13.6 g/dl (14.0-18.0); Mean Corpuscular HGB Conc 33 g/dl (31-36); Mean Corpuscular Hemoglobin 32 pg (27-31); Mean Corpuscular Volume 96 fL (80-94); Mean Platelet Volume 9 um3 (7.4-10.4); Red Blood Count 4.28 10^6/ul (4.0-5.4); Red Cell Distribution Width 13 % (10.5-15); White Blood Count 11.7 10^3/ul (3.5-10.8)
[2017-07-04 18:44] LABS: EGFR African American 102.9 (>60)
[2017-07-04] MEDS ORDERED: Zolpidem TAB* 5 MG PO PRN (21:00)
[2017-07-04] MEDS: Heparin VIAL(*) 5000 UNITS/ML VIAL (FIVE THOUSAND) SUBCUT SCH (22:03)
[2017-07-05 05:40] LABS: Hematocrit 37 % (42-52); Hemoglobin 12.5 g/dl (14.0-18.0); Mean Corpuscular HGB Conc 34 g/dl (31-36); Mean Corpuscular Hemoglobin 32 pg (27-31); Mean Corpuscular Volume 96 fL (80-94); Mean Platelet Volume 9 um3 (7.4-10.4); Red Blood Count 3.89 10^6/ul (4.0-5.4); Red Cell Distribution Width 13 % (10.5-15); White Blood Count 14.5 10^3/ul (3.5-10.8)
[2017-07-05 05:48] LABS: Add Diff/Slide Review? Slide Review Added; Comments Flag Yes
[2017-07-05 05:52] LABS: BUN/Creatinine Ratio 18.4 (8-20); Calcium 8.4 mg/dL (8.6-10.3); EGFR African American 93.3 (>60); EGFR Non-African American 72.5 (>60); Potassium 4.2 mmol/L (3.5-5.0)
[2017-07-05] MEDS: Heparin VIAL(*) 5000 UNITS/ML VIAL (FIVE THOUSAND) SUBCUT SCH (07:46)
[2017-07-05] MEDS: Aspirin Low Dose CHEW TAB* 81 MG PO SCH (07:47)
[2017-07-05] MEDS: CMC: Pantoprazole TAB (NF) 40 MG TAB PO SCH (07:47)
[2017-07-05] MEDS: Lisinopril TAB* 10 MG PO SCH (07:47)
[2017-07-05] MEDS: Tamsulosin CAP* 0.4 MG PO SCH (07:47)
[2017-07-05] MEDS: Clopidogrel TAB* 75 MG PO SCH (07:47)
--- NOTE | 2017-07-05 07:56 | CATH ---
CC: Dr. Joel Hernandez; Dr. Jose Luis Hamilton * CARDIAC CATHETERIZATION INTERVENTIONAL REPORT: DATE OF PROCEDURE: 07/04/17 - ROOM #ICU-05 INDICATIONS FOR PROCEDURE: The patient presents with a non-ST segment elevation myocardial infarction, assess for the presence of significant underlying coronary artery disease. PROCEDURE: Coronary arteriography, left heart catheterization, primary stenting of the mid LAD with a 3.5 x 16 mm long Synergy drug-eluting stent, postdilated with high pressure. DESCRIPTION OF PROCEDURE: The patient was interviewed and examined on the floor of the hospital where the risks and benefits were explained. He understood them and wished to proceed. He was brought to the cardiovascular laboratory where formal time-out was performed. The patient was on intravenous heparin at that time and also on intravenous nitroglycerin. The right radial artery area was evaluated already for an approach and was found to be acceptable in caliber size. The patient was prepped and draped in the sterile fashion. Right radial artery was cannulated and a 6-Greenlandic Glidesheath was placed. Attempts were made with a 5- Greenlandic TIG4 catheter to advance the wire into the ascending aorta. The wire was then exchanged for Wholey wire with eventual success in cannulating into the ascending aorta. However, there was significant tortuosity throughout the brachiocephalic and subclavian area such that the catheter could not be torqued well to establish proper seeding for diagnostic catheterization. The decision was made to abort this approach. The right groin area was anesthetized with 1% lidocaine. The right femoral artery was cannulated and a 5-Greenlandic introducer was placed. Coronary arteriography was performed utilizing a 5-Greenlandic 4 Tyler left coronary catheter and a 5- Greenlandic 4 Tyler right coronary artery. The decision was made to intervene into the proximal LAD. The existing 5-Greenlandic sheath was exchanged for a 6- Greenlandic 23-cm long sheath due to tortuosity in the iliac artery. Guiding views were obtained with a VL3 curve guide catheter. With some mild degree of difficulty, a BMW radial length wire was advanced down the LAD and primary stenting was performed utilizing a 3.5 x 16 mm long Synergy drug-eluting stent postdilated with high balloon pressure utilizing a 3.5 x 8 mm long NC Emerge balloon. Following this, the artery was assessed both with wire in place and wire removed. Decision was then made to perform left heart catheterization to look at left ventricular pressures. A 5-Greenlandic pigtail catheter was advanced to the ascending aorta. Central aortic pressure was recorded. The catheter was then passed across the aortic valve into the left ventricle where left ventricular pressure was recorded. Pullback was then obtained. Left ventriculography was not performed as the patient already had 2 echocardiograms performed. The total contrast used was 180 cc of Visipaque dye. The radiation exposure included 22.6 minutes of fluoro time. The air kerma radiation was 1809 milligray. The DAP radiation was 9852 microgray per sq. m. At the end of the case, the right radial artery sheath was removed and hemostasis was obtained with a Vasc Band. The right femoral artery sheath was sutured in place to be removed later in the intensive care unit once the heparin wears off. RESULTS: LEFT HEART CATHETERIZATION: Central aortic pressure was recorded at 136/67 with a mean of 99, left ventricular pressure 143 over left ventricular end- diastolic pressure of 11. CORONARY ARTERIOGRAPHY: A. LEFT CORONARY ARTERY: 1. Left main - widely patent. 2. Left anterior descending artery - the mid portion of the left anterior descending artery just around a small second diagonal branch and after the first septal patient account liaison had a hazy area that was eccentric in nature appearing 75% to 80% narrowed in its worst view. Past this point, the rest of the left anterior descending artery had no significant disease. The artery did reach the apical region and turned on to the inferior surface. 3. Circumflex artery - a nondominant vessel supplying a thin first obtuse marginal branch with a moderate size mid obtuse marginal branch continuing on to supply a low-lying obtuse marginal branch and then a left-sided posterior descending artery. It was a left dominant circumflex. The proximal portion had a 50% obstruction seen with mild poststenotic aneurysmal dilatation noted. Past this point in the circumflex artery, there were no significant lesions seen. The moderate size mid obtuse marginal branch had mild luminal irregularities in its mid portion of approximately 20%. INTERVENTION INTO MID LAD: Successful reduction of 75% to 80% stenosis with residual stenosis of 0%, FARHANA-3 flow, and no dissection seen. OVERALL ASSESSMENT: Significant disease involving the mid left anterior descending artery close to the proximal segment. Successful intervention as described above. Moderate disease involving the proximal circumflex as noted above. Dual antiplatelet therapy with aspirin and clopidogrel will be pursued as well as high- dose statin therapy. The decision on timing on restarting the Pradaxa will be made after reviewing the status of the right radial artery site as well as the right femoral artery site a day after cardiac catheterization. This information will be shared with Dr. Joel Hernandez, the patient's primary plywood patcher, and his primary care doctor, Dr. Jose Luis Hamilton. [id number]/[facility] #: [id number] MTDD
[2017-07-05 12:27] VITALS: BP 105/50
--- NOTE | 2017-07-06 05:23 | DS ---
CC: Jose Luis Hamilton MD; Keegan Castellano MD * DISCHARGE SUMMARY: DATE OF ADMISSION: 07/02/17 DATE OF DISCHARGE: 07/05/17 PRIMARY CARE PHYSICIAN: Jose Luis Hamilton MD PRINCIPAL DISCHARGE DIAGNOSIS: Non-ST segment elevation myocardial infarction. SECONDARY DIAGNOSES: 1. Atrial fibrillation, on Pradaxa. 2. Hypertension. 3. Hyperlipidemia. 4. Gastroesophageal reflux disease. 5. Benign prostatic hyperplasia. 6. Coronary artery disease, status post myocardial infarction in the past. DISCHARGE MEDICATION REGIMEN: 1. Aspirin 81 mg by mouth daily. 2. Atorvastatin 80 mg by mouth daily. 3. Plavix 75 mg by mouth daily. 4. Pradaxa 150 mg by mouth 2 times daily. 6. Lisinopril 10 mg by mouth daily. 7. Flomax 0.4 mg by mouth daily. 8. Coenzyme Q 1 capsule by mouth 2 times daily. 9. Glucosamine 1000 mg by mouth 2 times daily. 10. Vitamin D 1 capsule by mouth daily. 11. Vitamin C 500 mg by mouth 3 times daily. 13. Vitamin B12 100 mcg by mouth daily. 14. Saw palmetto 550 mg by mouth 2 times daily. STUDIES DONE DURING HOSPITALIZATION: Chest x-ray, impression: No active cardiopulmonary disease. Transthoracic echocardiogram, conclusion: Left ventricular systolic function is at the lower limit of normal. There is an area of hypokinesis to the low posterolateral wall. Estimated ejection fraction is 50% to 55%. The left atrium is [id number] dilated. The right atrium is [id number] dilated, trace aortic regurgitation, trace- to-mild mitral regurgitation, mild tricuspid regurgitation, mild pulmonary hypertension, trace pulmonic regurgitation. Cardiac catheterization, overall assessment: Significant disease involving the mid left anterior descending artery close to the proximal segment, successful intervention, replacement of drug-eluting stent. HISTORY OF PRESENT ILLNESS AND HOSPITAL SUMMARY: Please see the full history and physical by Zion Urbano NP, for full details. Briefly, Mr. Zayas is an 87-year- old man with a past medical history as above, who presented to the hospital with chest discomfort that radiates into the left shoulder, that seemed to be exertional in nature. The patient was noted to have a troponin of 0.22 on admission as well as some mild ST elevations on EKG. The patient was evaluated by Cardiology and decision was made to treat the patient medically until Pradaxa wash out of the patient's system. He was transitioned to a heparin drip as well as a nitro drip. His pain resolved and did not recur during the hospitalization. The patient was taken by Dr. Castellano to the research laboratory technician on 07/04/17, where he was found to have an obstruction of the mid LAD and received a drug-eluting stent. The plan will be for the patient to continue aspirin, Plavix in addition to his home Pradaxa. He will follow up with his PCP and with Dr. Castellano as an outpatient. TIME SPENT: Total time spent on this discharge 45 minutes. This is the summary of the hospitalization. Please see the full medical record for further details. [id number]/[facility] #: [id number] MTDD
== END 2017-07-05 12:30 | disposition home or self-care (01) | DRG 247 ==
LOC: ED 09:51 → ICU 11:45
PROVIDERS: ADMIT Hospitalist; ATTEND Hospitalist
PROC: 3E0234Z Introduction of Serum, Toxoid and Vaccine into Muscle, Percutaneous Approach (ICD-10-PCS; 2017-07-03)
PROC: 027034Z Dilation of Coronary Artery, One Artery with Drug-eluting Intraluminal Device, Percutaneous Approach (ICD-10-PCS; 2017-07-04)
PROC: 4A023N7 Measurement of Cardiac Sampling and Pressure, Left Heart, Percutaneous Approach (ICD-10-PCS; 2017-07-04)
PROC: B211YZZ Fluoroscopy of Multiple Coronary Arteries using Other Contrast (ICD-10-PCS; principal; 2017-07-04 08:45)
DX: I21.4 Non-ST elevation (NSTEMI) myocardial infarction (principal); I27.2 Other secondary pulmonary hypertension; R00.1 Bradycardia, unspecified; K22.2 Esophageal obstruction; I08.3 Combined rheumatic disorders of mitral, aortic and tricuspid valves; I25.2 Old myocardial infarction; I48.2 Chronic atrial fibrillation; I48.0 Paroxysmal atrial fibrillation; I10 Essential (primary) hypertension; E78.5 Hyperlipidemia, unspecified; K21.9 Gastro-esophageal reflux disease without esophagitis; N40.0 Benign prostatic hyperplasia without lower urinary tract symptoms; I25.10 Atherosclerotic heart disease of native coronary artery without angina pectoris; Z96.653 Presence of artificial knee joint, bilateral; I77.1 Stricture of artery; Z23 Encounter for immunization; Z87.440 Personal history of urinary (tract) infections; Z95.5 Presence of coronary angioplasty implant and graft; Z89.021 Acquired absence of right finger(s); Z88.5 Allergy status to narcotic agent; Z88.2 Allergy status to sulfonamides; Z91.041 Radiographic dye allergy status; Z80.6 Family history of leukemia; Z79.82 Long term (current) use of aspirin; Z79.02 Long term (current) use of antithrombotics/antiplatelets; Z79.01 Long term (current) use of anticoagulants
CPT/HCPCS: 36415; 71010; 80048; 80053; 80061; 82550; 82553; 82565; 83036; 83605; 83735; 84484; 84520; 85025; 85610; 85730; 87040; 87641; 90686; 93005; 93306; 93308; 93458; 94760; A9270-GY; C1725; C1769; C1876; C1887; C9600-LD; J0461; J1644; J2001; J2250; J3010; J7512

== ENCOUNTER 2019-10-03 11:21 | Emergency (ER) | payer MEDICARE ==
--- OUTSIDE RECORDS SUMMARY | 2019-10-03 11:32 | XMS REPORT | Continuity of Care Document ---
:1930 External Reference #:[id number] Author Name William Hart M.D. 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 Onset: 01/02/2019 Social History Type Date Description Comments Sex Unknown ETOH Use Denies alcohol use Tobacco Use Start: Unknown Patient has never smoked Recreational Drug Use Denies Drug Use Smoking Status Reviewed: 09/25/19 Patient has never smoked Allergies, Adverse Reactions, Alerts Active Allergies Reaction Severity Comments Date Morphine 01/02/2019 Contrast Dye 01/02/2019 Medications Active Medications SIG Qnty Indications Ordering Provider Date Lisinopril James Byrd NP 10mg Tablets Eugenio Barajas M.D. 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 If you are a smoker, we strongly recommend that you quit.If you are not a smoker, we strongly recommend that you do not start. You have been diagnosed with a cataract in your lefteye. If you are happy with your vision as it is now, then we will see you at your next scheduled appointment. If you feel like your vision is getting worse before your scheduled appointment, please call Anna at .Follow up:6 Year Follow Up DFE You can expect to have your eyes dilated at your next visit. If Dr. Hart orders any additional testing, it may require extra time. We recommend that you bring sunglasses, as dilation drops often make you light sensitive until they wear off. We always recommend you bring someone to drive you home if you are uncomfortable driving with your eyes dilated. If you have any questions before your next visit, feel free to call our office at .V53.4371 Capsular glaucoma with pseudoexfoliation of lens, left eye, moderate stage Functional Status Description No Information Available Mental Status Description No Information Available Referrals Description No Information Available
--- OUTSIDE RECORDS SUMMARY | 2019-10-03 11:32 | XMS REPORT | Summary of Care ---
:1930 Author Organization [facility] Address [address] [facility] [place] [address] Care Team Providers Name Role Phone Eugenio Hamilton MD Primary Care Provider Reason for Visit Reason Comments Carotid Stenosis Encounter Details Date Type Department Care Team Description 09/02/2019 Office Visit Aylin Agee, Carotid stenosis, Surgery MD Dominique asymptomatic, right [address] [facility] (Primary Dx) [place] [address] [place] [address] Allergies Active Allergy Reactions Severity Noted Date Comments Blue Dyes Respiratory Reaction 04/18/2018 Ct Dye Respiratory Reaction 04/18/2018 Morphine Anaphylaxis 04/18/2018 Sulfa Antibiotics Hives 04/18/2018 documented as of this encounter (statuses as of 09/02/2019) Medications Medication Sig Dispensed Refills Start Date End Date Status Tamsulosin HCl (FLOMAX) Take 0.4 mg by 0 Active 0.4 MG Oral Cap mouth DAILY. clopidogrel (PLAVIX) 75 Take 75 mg by 0 Active MG Oral Tab mouth DAILY. metoprolol tartrate Take 25 mg by 0 Active (LOPRESSOR) 25 mg mouth. lisinopril (PRINIVIL, Take 10 mg by 0 Active ZESTRIL) 10 MG Oral Tab mouth DAILY. atorvastatin (LIPITOR) Take 80 mg by 0 Active 80 MG Oral Tab mouth DAILY. metoprolol succinate Take 25 mg by 0 Active (TOPROL XL) 25 MG Oral mouth DAILY. TABLET SR 24 HR GLUCOSAMINE SULFATE PO Take by mouth 0 Active DAILY. documented as of this encounter (statuses as of 09/02/2019) Active Problems Problem Noted Date Pain in joint involving left pelvic region and thigh 04/18/2018 documented as of this encounter (statuses as of 09/02/2019) Social History Tobacco Use Types Packs/Day Years Used Date Never Smoker Smokeless Tobacco: Never Used Sex Assigned at Date Recorded Not on file Job Start Date Occupation Industry Not on file Not on file Not on file Travel History Travel Start Travel End No recent travel history available. documented as of this encounter Last Filed Vital Signs Vital Sign Reading Time Taken Comments Blood Pressure 140/72 09/02/2019 11:43 AM left right 138/80 EST Pulse 60 09/02/2019 11:43 AM EST Temperature - - Respiratory Rate - - Oxygen Saturation - - Inhaled Oxygen Concentration - - Weight 71.7 kg (158 lb) 09/02/2019 11:43 AM EST Height 170.2 cm (5' 7") 09/02/2019 11:43 AM EST Body Mass Index 24.75 09/02/2019 11:43 AM EST documented in this encounter Progress Notes Jaspreet Banegas NP - 09/02/2019 11:00 AM EST PATIENT: Jasmyn Zayas : 1930 DATE OF SERVICE: 09/02/2019 REFERRING PRACTITIONER: Aiden Reyes PRIMARY CARE PROVIDER: Eugenio Hamilton CHIEF COMPLAINT: Chief Complaint Patient presents with Carotid Stenosis Subjective HISTORY OF PRESENT ILLNESS: Jasmyn Zayas is a 89-y.o. male who was referred for asymptomatic carotid stenosis. He reports occasional intermittent dizziness. Reports he has history of CVA but unsure of date. He and are poor historians. Reports previous cardiac stenting as well. Denies any history of DM. He denies unilateral monocular blindness, unilateral motor or sensory deficits, aphasia and dysarthria.Patient has been on Plavix and Lipitor. He reports history of HTN and coronary artery stenting. He denies any chest pain or shortness of breath. History reviewed. No pertinent past medical history. History reviewed. No pertinent surgical history. History reviewed. No pertinent family history. Current Outpatient Medications Medication Sig atorvastatin (LIPITOR) 80 MG Oral Tab Take 80 mg by mouth DAILY. clopidogrel (PLAVIX) 75 MG Oral Tab Take 75 mg by mouth DAILY. GLUCOSAMINE SULFATE PO Take by mouth DAILY. lisinopril (PRINIVIL, ZESTRIL) 10 MG Oral Tab Take 10 mg by mouth DAILY. metoprolol succinate (TOPROL XL) 25 MG Oral TABLET SR 24 HR Take 25 mg by mouth DAILY. metoprolol tartrate (LOPRESSOR) 25 mg Take 25 mg by mouth. Tamsulosin HCl (FLOMAX) 0.4 MG Oral Cap Take 0.4 mg by mouth DAILY. No current facility-administered medications for this visit. Allergies Allergen Reactions Blue Dyes Respiratory Reaction Iv Dye [Ct Dye] Respiratory Reaction Morphine Anaphylaxis Sulfa Antibiotics Hives Social History Socioeconomic History Marital status: Spouse name: Not on file Number of children: Not on file Years of education: Not on file Highest education level: Not on file Occupational History Not on file Social Needs Financial resource strain: Not on file Food insecurity: Worry: Not on file Inability: Not on file Transportation needs: Medical: Not on file Non-medical: Not on file Tobacco Use Smoking status: Never Smoker Smokeless tobacco: Never Used Substance and Sexual Activity Alcohol use: Not on file Drug use: Not on file Sexual activity: Not on file Lifestyle Physical activity: Days per week: Not on file Minutes per session: Not on file Stress: Not on file Relationships Social connections: Talks on phone: Not on file Gets together: Not on file Attends restorationism service: Not on file Active member of club or organization: Not on file Attends meetings of clubs or organizations: Not on file Relationship status: Not on file Intimate partner violence: Fear of current or ex partner: Not on file Emotionally abused: Not on file Physically abused: Not on file Forced sexual activity: Not on file Other Topics Concern Not on file Social History Narrative Not on file REVIEW OF SYSTEMS: as per history of present illness Objective PHYSICAL EXAMINATION: VITALS: BP 140/72 Comment: left right 138/80 | Pulse 60 | Ht 5' 7" (1.702 m) | Wt 158 lb (71.7 kg) | BMI 24.75 kg/m GENERAL: awake, alert HEENT: pupils equal, round, reactive to light, extraocular movement intact. NECK: no mass, no adenopathy, no thyromegaly. EXTREMITIES: no clubbing, cyanosis, or edema. NEUROLOGICAL: Oriented X 3, conversation confused at times, unsure of past events, poor historian FACIAL DROOP: None noted. DIAGNOSTICS: 09/02/2019 IMPRESSIONS: Patient with history of right carotid stenosis. Duplex imaging of the right carotid indicates 50 to 69% stenosis, there is 0 to 49% stenosis of the left carotid. There is mild plaque bilaterally. Right ICA: 155/27cms, Left ICA: 78/13cms Bilateral vertebrals are antegrade. Bilateral brachial pressures are equal. There is no previous exam available for comparison. Plan ASSESSMENT AND PLAN: Jasmyn Zayas is a 89-y.o. male with asymptomatic right carotid artery stenosis right 50-69%, no significant stenosis on the left. ICD-9-CM ICD-10-CM 1. Carotid stenosis, asymptomatic, right 433.[address] I65.[address] Agee, Please refer to his note for further details. Recommend continuing Plavix and Lipitor. No surgical intervention needed at this time. Follow up with Vascular Surgery as needed. Author: Jaspreet Banegas NP 09/02/2019 11:49 Associated attestation - Dominique Agee MD - 09/02/2019 3:34 PM [facility] Supervising MD Documentation Date of Service: [id number] B# [id number] I saw and evaluated the patient. Discussed with resident and agree with the resident's findings andplan as documented in the resident's note. Additional Comments: Asymptomatic moderate right and mild left internal carotid artery stenosis. Recommend medical management. Follow up as needed. Dominique Agee MD Supervising Physiciandocumented in this encounter Plan of Treatment Health Maintenance Due Date Last Done Comments MEDICARE ANNUAL WELLNESS VISIT 1930 DEPRESSION SCREENING 1942 HIV SCREENING 1946 ZOSTER IMMUNIZATION SERIES (1 of 2) 1981 FALL RISK ASSESSMENT 01/05/1996 PNEUMOCOCCAL 65+YRS (1 of 2 - 01/05/1996 PCV13) INFLUENZA VACCINE (#1) 2019 HPV IMMUNIZATION SERIES Aged Out No longer eligible based on patient's age to complete this topic MENINGOCOCCAL VACCINE IMM Aged Out No longer eligible based on patient's age to complete this topic documented as of this encounter Results Not on filedocumented in this encounter Visit Diagnoses Diagnosis Carotid stenosis, asymptomatic, right - Primary documented in this encounter Insurance Payer Benefit Plan / Subscriber ID Effective Dates Phone Address Type Group [employer]HC MEDICARE [employer] xxxxxxxxx 2017-Present UHC ADVANTAGE MEDICARE ADVANTAGE documented as of this encounter
--- NOTE | 2019-10-03 13:23 | ED ---
Throat Pain/Nasal Congestion - HPI Summary HPI Summary: This patient is an 89 year old male presenting to [facility] with a chief complaint of difficulty swallowing since a few weeks ago and concern for a foreign body this am. He had problem eating breakfast this AM and is concerned of food being in his esophagus. He is able to swallow liquids and secretions. He states he already had an appointment with an ENT on Sunday for surgery but became concerned after eating breakfast this morning. Pt denies any fever, chills, erythema of eyes, sore throat, CP, SOB, cough, abdominal pain, N/V, dysuria, hematuria, myalgia, edema, rash, or dizziness. - History of Current Complaint Chief Complaint: EDForeignBodyEsophag Time Seen by Provider: 10/03/19 13:12 Hx Obtained From: Patient Onset/Duration: Lasting Weeks - Allergies/Home Medications Allergies/Adverse Reactions: Allergies Allergy/AdvReac Type Severity Reaction Status Date / Time MS Iodinated Diagnostic Allergy Difficulty Verified 10/03/19 11:28 Agents Breathing [Iodinated Diagnostic Agents] AND RASH MS Morphine [Morphine] Allergy Rash Verified 10/03/19 11:28 MS Sulfa Antibiotics Allergy Rash Verified 10/03/19 11:28 [Sulfa Antibiotics] IV DYE Allergy Difficulty Uncoded 01/20/19 10:25 Breathing AND RASH PMH/Surg Hx/FS Hx/Imm Hx Endocrine/Hematology History: Denies: Hx Diabetes, Hx Thyroid Disease Cardiovascular History: Reports: Hx Hypertension - MEDICATED, Other Cardiovascular Problems/Disorders - cardiac stent to LAD Denies: Hx Pacemaker/ICD Respiratory History: Denies: Hx Asthma, Hx Chronic Obstructive Pulmonary Disease (COPD) GI History: Denies: Hx Ulcer Musculoskeletal History: Reports: Hx Arthritis - bilateral hands Sensory History: Reports: Hx Contacts or Glasses Denies: Hx Hearing Aid Opthamlomology History: Reports: Hx Contacts or Glasses Psychiatric History: Denies: Hx Panic Disorder - Surgical History Surgery Procedure, Year, and Place: bilat knee surgery - Lt -TOTAL KNEE REPLACEMENT, Rt PARTIAL REPLACEMENT. cataract surgery R eye. CARDIAC STENTS - 1979,2012, 2018. Rt POINTER - PARTIAL AMPUTATED Infectious Disease History: No Infectious Disease History: Denies: Hx Hepatitis, Hx Human Immunodeficiency Virus (HIV), Traveled Outside the [place] in Last 30 Days - Family History Known Family History: Negative: Cardiac Disease - Social History Alcohol Use: None Hx Substance Use: No Substance Use Type: Reports: None Hx Tobacco Use: No Smoking Status (MU): Never Smoked Tobacco Review of Systems Negative: Fever, Chills Negative: Erythema Positive: Other - Difficulty swallowing, possible foreign body. Negative: Sore Throat Negative: Chest Pain Negative: Shortness Of Breath, Cough Negative: Abdominal Pain, Vomiting, Nausea Negative: Myalgia, Edema Negative: Rash Neurological: Other - Neg: Dizziness All Other Systems Reviewed And Are Negative: No Physical Exam - Summary Physical Exam Summary: Constitutional: Well-developed, Well-nourished, Alert. (-) Distressed Skin: Warm, Dry HENT: Normocephalic; Atraumatic Eyes: Conjunctiva normal Neck: Musculoskeletal ROM normal neck. (-) JVD, (-) Stridor, (-) Tracheal deviation Cardio: Rhythm regular, rate normal, Heart sounds normal; Intact distal pulses; The pedal pulses are 2+ and symmetric. Radial pulses are 2+ and symmetric. (-) Murmur Pulmonary/Chest wall: Effort normal. (-) Respiratory distress, (-) Wheezes, (-) Rales Abd: Soft, (-) tenderness, (-) Distension, (-) Guarding, (-) Rebound Musculoskeletal: (-) Edema Lymph: (-) Cervical adenopathy Neuro: Alert, Oriented x3 Psych: Mood and affect Normal Triage Information Reviewed: Yes Vital Signs On Initial Exam: Initial Vitals Temp Pulse Resp BP Pulse Ox 97 F 56 16 155/87 99 10/03/19 11:23 10/03/19 11:23 10/03/19 11:23 10/03/19 11:23 10/03/19 11:23 Vital Signs Reviewed: Yes Procedures - Sedation Patient Received Moderate/Deep Sedation with Procedure: No Diagnostics - Vital Signs Vital Signs Temp Pulse Resp BP Pulse Ox 10/03/19 11:23 97 F 56 16 155/87 99 - Laboratory Result Diagrams: 10/03/19 13:19 10/03/19 13:19 Lab Statement: Any lab studies that have been ordered have been reviewed, and results considered in the medical decision making process. - EKG 1339 Cardiac Rate: NL - 60 BPM EKG Rhythm: Atrial Fibrillation Summary of EKG Findings: No STEMI. ED Physician has reviewed and interpreted this report. Re-Evaluation - Re-Evaluation First Eval Re-Evaluation Time: 14:51 Comment: Patient understands the plan. EENT Course/Dx - Course Course Of Treatment: This patient is an 89 year old male presenting to [facility] with a chief complaint of difficulty swallowing since a few weeks ago and concern for a foreign body this am. Appointment arranged on Sunday with Donna Curtis, Gastroenterology, for endoscopy. The patient is currently tolerating liquids and is asymptomatic. A plan for discharge was discussed with the patient and he was agreeable with this plan. - Diagnoses Provider Diagnoses: Esophageal stricture Discharge ED - Sign-Out/Discharge Documenting (check all that apply): Patient Departure - Discharge - Discharge Plan Condition: Stable Disposition: HOME Patient Education Materials: Esophageal Stricture (ED) Referrals: Donna Curtis PA [Physician Or Director] - - Attestation Statements Document Initiated by Scribe: Yes Documenting Scribe: Bebeto Murphy Provider For Whom Scribe is Documenting (Include Credential): Arturo Lau MD Scribe Attestation: Bebeto Edwards, scribed for Arturo Lau MD on 10/03/19 at 1451. Status of Scribe Document: Ready
[2019-10-03 13:28] LABS: ABS Eosinophils 0.2 10^3/ul (0-0.6); ABS Lymphocytes 1.3 10^3/ul (1.0-4.8); ABS Monocytes 0.8 10^3/ul (0-0.8); ABS Neutrophils 3.9 10^3/ul (1.5-7.7); Eosinophil % 2.9 %; Hematocrit 43 % (42-52); Hemoglobin 14.6 g/dL (14.0-18.0); Lymphocyte % 21.5 %; Mean Corpuscular HGB Conc 34 g/dL (31-36); Mean Corpuscular Hemoglobin 33 pg (27-31); Mean Corpuscular Volume 96 fL (80-94); Mean Platelet Volume 8.6 fL (7.4-10.4); Platelet Count 212 10^3/uL (150-450); Red Blood Count 4.49 10^6 /uL (4.18-5.48); Red Cell Distribution Width 14 % (10-15); White Blood Count 6.3 10^3/uL (3.5-10.8)
[2019-10-03 13:45] LABS: Albumin 4.2 g/dL (3.2-5.2); Albumin/Globulin Ratio 1.4 (1-3); BUN/Creatinine Ratio 14.3 (8-20); Calcium 9.1 mg/dL (8.6-10.3); EGFR African American 80.7 (>60); EGFR Non-African American 66.7 (>60); Globulin 2.9 g/dL (2-4); Magnesium 2.1 mg/dL (1.9-2.7); Total Bilirubin 1.8 mg/dL (0.2-1.0); Total Protein 7.1 g/dL (6.4-8.9)
[2019-10-03 13:47] LABS: Troponin I 0.01 ng/mL (<0.03)
[2019-10-03 14:31] LABS: TSH (Thyroid Stimulating Horm) 0.91 mcIU/mL (0.34-5.60)
[2019-10-03 15:03] VITALS: BP 137/90
== END 2019-10-03 14:50 | disposition home or self-care (01) ==
LOC: ED 11:21
DX: K22.2 Esophageal obstruction (principal); I48.91 Unspecified atrial fibrillation; I10 Essential (primary) hypertension; Z95.5 Presence of coronary angioplasty implant and graft; Z96.653 Presence of artificial knee joint, bilateral; Z89.021 Acquired absence of right finger(s); Z88.5 Allergy status to narcotic agent; Z88.2 Allergy status to sulfonamides; Z91.041 Radiographic dye allergy status
CPT/HCPCS: 36415; 80053; 83605; 83735; 84443; 84484; 85025; 93005; 99282

== ENCOUNTER 2020-12-01 05:06 | Inpatient (IN) ==
[2020-12-01 06:01] LABS: ABS Eosinophils 0.1 10^3/ul (0-0.6); ABS Lymphocytes 0.6 10^3/ul (1.0-4.8); ABS Monocytes 0.6 10^3/ul (0-0.8); ABS Neutrophils 10.6 10^3/ul (1.5-7.7); Eosinophil % 1.2 %; Hematocrit 34 % (42-52); Hemoglobin 11.2 g/dL (14.0-18.0); Lymphocyte % 5.1 %; Mean Corpuscular HGB Conc 33 g/dL (31-36); Mean Corpuscular Hemoglobin 33 pg (27-31); Mean Corpuscular Volume 98 fL (80-94); Platelet Count 436 10^3/uL (150-450); Red Blood Count 3.43 10^6 /uL (4.18-5.48); Red Cell Distribution Width 14 % (10-15); White Blood Count 11.9 10^3/uL (3.5-10.8)
[2020-12-01 06:09] LABS: INR 1.5 (0.82-1.09)
[2020-12-01] MEDS ORDERED: NS 0.9% 1000 ml BAG 1,000 ML IV.FLUID IV ONE (06:09)
[2020-12-01] MEDS ORDERED: Piperacillin/Tazobac ADVAN 3.375 GM in NS 0.9% 100 ml BAG 100 ML IVPB ONE (06:09)
[2020-12-01 06:13] LABS: Albumin 3.6 g/dL (3.2-5.2); BUN/Creatinine Ratio 16.1 (8-20); C Reactive Protein 77.53 mg/L (<8.01); Calcium 8.8 mg/dL (8.6-10.3); EGFR Non-African American 82.6 (>60); Globulin 3.5 g/dL (2-4); Potassium 3.7 mmol/L (3.5-5.0); Total Bilirubin 1.4 mg/dL (0.2-1.0); Total Protein 7.1 g/dL (6.4-8.9)
[2020-12-01 06:15] LABS: Troponin I 0.01 ng/mL (<0.03)
[2020-12-01] MEDS ORDERED: fentaNYL 100 mcg/2 ml 50 MCG/ML VIAL IV ONE (06:15)
[2020-12-01] MEDS ORDERED: Vancomycin 1,250 MG in NS 0.9% 250 ml 250 ML IVPB ONE (07:00)
[2020-12-01 07:23] LABS: Activated Partial Thrombo Time 28.1 seconds (26.0-38.0)
[2020-12-01] MEDS ORDERED: HYDROcodone/ACETAMIN 5/325 mg TAB PO PRN (08:56)
[2020-12-01] MEDS ORDERED: Morphine 2 MG/ML SYRINGE IV PRN ×2 (08:59→09:03)
[2020-12-01] MEDS ORDERED: Zosyn per Pharmacy NOTE FOLLOW UP SCH (09:00)
[2020-12-01] MEDS ORDERED: oxyCODONE/Acetamin 5/325 mg TAB PO PRN (09:00)
[2020-12-01] MEDS ORDERED: NS 0.9% 1000 ml BAG 1,000 ML IV SCH (09:15)
[2020-12-01 09:43] LABS: Urine Appearance Clear; Urine Bacteria Absent (Absent); Urine Bilirubin Negative (Negative); Urine Blood Negative (Negative); Urine Color Yellow; Urine Glucose 1+(50 mg/dL) (Negative); Urine Ketones Trace (Negative); Urine Nitrite Negative (Negative); Urine Protein Negative (Negative); Urine Red Blood Cell Trace(0-2/hpf) (Absent); Urine Specific Gravity 1.014 (1.010-1.030); Urine Squamous Epithelial Cell Present (Absent); Urine Urobilinogen Negative (Negative); Urine White Blood Cell Trace(0-5/hpf) (Absent)
[2020-12-01] MEDS: guaiFENesin/CODIENE 100mg/10mg 5 ML UDC PO PRN ×2 (12:05→18:24)
[2020-12-01] MEDS: ZOSYN 3.375 GM Q8H per EXTENDED INFUSION IV SCH ×2 (12:06→18:25)
[2020-12-01] MEDS: Coenzyme Q10 CAP (NF) ** ENTER STREGNTH IN LABEL DIRECTIONS PO SCH (12:09)
[2020-12-01] MEDS: Fluticasone NASAL SPRAY 50MCG 16 gm SPRAY BTL INTRANASAL SCH (14:29)
[2020-12-01] MEDS: oxyCODONE/Acetamin 5/325 mg TAB PO PRN (14:34)
[2020-12-02] MEDS: ZOSYN 3.375 GM Q8H per EXTENDED INFUSION IV SCH ×3 (02:20→10:26)
[2020-12-02 06:54] LABS: Hematocrit 30 % (42-52); Hemoglobin 10.3 g/dL (14.0-18.0); Mean Corpuscular HGB Conc 34 g/dL (31-36); Mean Corpuscular Hemoglobin 33 pg (27-31); Mean Corpuscular Volume 98 fL (80-94); Mean Platelet Volume 7.7 fL (7.4-10.4); Platelet Count 371 10^3/uL (150-450); Red Blood Count 3.09 10^6 /uL (4.18-5.48); Red Cell Distribution Width 14 % (10-15); White Blood Count 19.8 10^3/uL (3.5-10.8)
[2020-12-02 07:11] LABS: BUN/Creatinine Ratio 17.4 (8-20); Calcium 8.5 mg/dL (8.6-10.3); EGFR African American 93.7 (>60); EGFR Non-African American 77.5 (>60); Potassium 4.3 mmol/L (3.5-5.0)
[2020-12-02 09:02] LABS: ABS Eosinophils 0.2 10^3/ul (0-0.6); ABS Monocytes 1.8 10^3/ul (0-0.8); ABS Neutrophils 16.7 10^3/ul (1.5-7.7); Eosinophil % 1.2 %; Lymphocyte % 5.2 %
[2020-12-02] MEDS: Lidocaine PATCH 5% PATCH TRANSDERM SCH (09:36)
[2020-12-02] MEDS: Fluticasone NASAL SPRAY 50MCG 16 gm SPRAY BTL INTRANASAL SCH (09:37)
[2020-12-02] MEDS: guaiFENesin/CODIENE 100mg/10mg 5 ML UDC PO PRN ×2 (09:37→20:43)
[2020-12-02] MEDS: Coenzyme Q10 CAP (NF) ** ENTER STREGNTH IN LABEL DIRECTIONS PO SCH (09:40)
[2020-12-02] MEDS ORDERED: cefTRIAXone 1 gm/50 mL NS BAG 1 GM/50 ML BAG IVPB SCH (11:00)
[2020-12-02] MEDS: Lidocaine Patch REMOVE PATCH PATCH OFF SCH (21:41)
[2020-12-03 05:31] LABS: Hematocrit 30 % (42-52); Hemoglobin 9.8 g/dL (14.0-18.0); Mean Corpuscular HGB Conc 33 g/dL (31-36); Mean Corpuscular Hemoglobin 32 pg (27-31); Mean Corpuscular Volume 97 fL (80-94); Mean Platelet Volume 7.9 fL (7.4-10.4); Platelet Count 341 10^3/uL (150-450); Red Blood Count 3.05 10^6 /uL (4.18-5.48); Red Cell Distribution Width 13 % (10-15); White Blood Count 19.6 10^3/uL (3.5-10.8)
[2020-12-03 05:39] LABS: BUN/Creatinine Ratio 18.6 (8-20); Calcium 8.4 mg/dL (8.6-10.3); EGFR African American 73.9 (>60); EGFR Non-African American 61.1 (>60); Potassium 3.8 mmol/L (3.5-5.0)
[2020-12-03 06:32] LABS: C Reactive Protein 199.9 mg/L (<8.01)
[2020-12-03] MEDS: Lidocaine PATCH 5% PATCH TRANSDERM SCH (08:29)
[2020-12-03] MEDS: Fluticasone NASAL SPRAY 50MCG 16 gm SPRAY BTL INTRANASAL SCH (08:30)
[2020-12-03] MEDS: Coenzyme Q10 CAP (NF) ** ENTER STREGNTH IN LABEL DIRECTIONS PO SCH (08:36)
[2020-12-03] MEDS ORDERED: Zosyn per Pharmacy NOTE FOLLOW UP SCH (10:00)
[2020-12-03] MEDS ORDERED: ZOSYN 3.375 GM x ONE DOSE over 30 miuntes IV (10:00)
[2020-12-03] MEDS ORDERED: Polyethylene Glycol 3350 17 GM PACKET PO PRN (13:12)
[2020-12-03 14:06] LABS: HDL Cholesterol 31.5 mg/dL
[2020-12-03] MEDS ORDERED: Senna TAB 8.6 mg TAB PO PRN (14:17)
[2020-12-03] MEDS: Polyethylene Glycol 3350 17 GM PACKET PO SCH (15:07)
[2020-12-03] MEDS: ZOSYN 3.375 GM Q8H per EXTENDED INFUSION IV SCH ×2 (15:07→22:20)
[2020-12-03] MEDS: oxyCODONE/Acetamin 5/325 mg TAB PO PRN (18:06)
[2020-12-03] MEDS: guaiFENesin/CODIENE 100mg/10mg 5 ML UDC PO PRN (19:43)
[2020-12-03] MEDS: Lidocaine Patch REMOVE PATCH PATCH OFF SCH (22:23)
[2020-12-04 06:32] LABS: Hematocrit 30 % (42-52); Mean Corpuscular HGB Conc 33 g/dL (31-36); Mean Corpuscular Hemoglobin 32 pg (27-31); Mean Corpuscular Volume 97 fL (80-94); Mean Platelet Volume 7.9 fL (7.4-10.4); Platelet Count 359 10^3/uL (150-450); Red Blood Count 3.12 10^6 /uL (4.18-5.48); Red Cell Distribution Width 14 % (10-15); White Blood Count 17.7 10^3/uL (3.5-10.8)
[2020-12-04 06:53] LABS: BUN/Creatinine Ratio 20.6 (8-20); Calcium 8.5 mg/dL (8.6-10.3); EGFR African American 78.7 (>60); EGFR Non-African American 65.1 (>60); Magnesium 1.9 mg/dL (1.9-2.7); Potassium 4.3 mmol/L (3.5-5.0)
[2020-12-04] MEDS: ZOSYN 3.375 GM Q8H per EXTENDED INFUSION IV SCH (07:34)
[2020-12-04] MEDS: Lidocaine PATCH 5% PATCH TRANSDERM SCH (07:34)
[2020-12-04] MEDS: Polyethylene Glycol 3350 17 GM PACKET PO SCH (07:35)
[2020-12-04] MEDS: Coenzyme Q10 CAP (NF) ** ENTER STREGNTH IN LABEL DIRECTIONS PO SCH (07:35)
[2020-12-04] MEDS: Fluticasone NASAL SPRAY 50MCG 16 gm SPRAY BTL INTRANASAL SCH (07:35)
[2020-12-04 11:43] LABS: C Reactive Protein 209.05 mg/L (<8.01)
[2020-12-04 15:21] VITALS: BP 134/72
== END 2020-12-04 16:40 | disposition home or self-care (01) | DRG 871 ==
LOC: ED 05:06 → MED 09:03
PROVIDERS: ADMIT Internal Medicine; ATTEND Internal Medicine